=== PATIENT | female | born 1985 | race Caucasian/White ===

== ENCOUNTER 2017-10-24 15:45 | Outpatient (CLI) | payer MEDICAID | END 2017-10-24 15:46 | disposition home or self-care (01) | LOC: LAB.R 15:45 | PROVIDERS: ATTEND Nurse Practitioner Family | DX: N39.0 Urinary tract infection, site not specified (principal) | CPT/HCPCS: 87086 ==

== ENCOUNTER 2017-12-30 09:49 | Outpatient (CLI) | payer MEDICAID ==
--- NOTE | 2017-12-30 12:27 | XRAY Report ---
CERVICAL SPINE: 12/30/2017. COMPARISON: No comparison. INDICATION: Bilateral arm neuralgia. TECHNIQUE: Three views. FINDINGS: There is reversal of the cervical lordotic curve. Alignment appears otherwise anatomic. There are small bilateral C7 cervical ribs. Prevertebral soft tissues appear unremarkable. The lateral masses are symmetric. No degenerative changes. IMPRESSION: REVERSAL OF THE CERVICAL LORDOTIC CURVE MAY BE DUE TO POSITIONING OR SPASM. TD: 12/30/2017 12:26 [facility]
--- NOTE | 2017-12-30 12:29 | XRAY Report ---
BILATERAL HANDS: 12/30/2017 COMPARISON: No comparison. INDICATION: Bilateral hand pain. TECHNIQUE: Two views of each hand. FINDINGS: There are small erosions on the right at the base of the second proximal phalanx and involving the third metacarpal head. No other degenerative or erosive findings are seen. Normal alignment. No acute fracture. IMPRESSION: MILD EROSIVE CHANGES OF THE RIGHT SECOND AND THIRD METACARPOPHALANGEAL JOINTS. CORRELATE CLINICALLY FOR EROSIVE ARTHROPATHY. TD: 12/30/2017 12:28 [facility]
== END 2017-12-30 09:50 | disposition home or self-care (01) ==
LOC: DI.S 09:49
PROVIDERS: ATTEND Nurse Practitioner Family
DX: M79.2 Neuralgia and neuritis, unspecified (principal); M79.642 Pain in left hand; M85.841 Other specified disorders of bone density and structure, right hand
CPT/HCPCS: 72040

== ENCOUNTER 2018-01-23 08:00 | Outpatient (CLI) | payer MEDICAID | END 2018-01-23 08:01 | disposition home or self-care (01) | LOC: LAB.F 08:00 | PROVIDERS: ATTEND Nurse Practitioner Family | DX: Z32.01 Encounter for pregnancy test, result positive (principal); N93.9 Abnormal uterine and vaginal bleeding, unspecified | CPT/HCPCS: 36415; 84702 ==

== ENCOUNTER 2018-07-10 08:43 | Outpatient (CLI) | payer MEDICAID | END 2018-07-10 08:44 | disposition critical access hospital (66) | LOC: EMS 08:43 | PROVIDERS: ATTEND Surgery | DX: R52 Pain, unspecified (principal); V99.XXXA Unspecified transport accident, initial encounter | CPT/HCPCS: A0425; A0429; A0999 ==

== ENCOUNTER 2018-07-10 09:10 | Emergency (ER) | payer MEDICAID ==
[2018-07-10] MEDS ORDERED: MORPHINE 2 MG/ML CARPUJECT IVP STA (09:20)
[2018-07-10] MEDS ORDERED: SODIUM CHLORIDE 0.9% 1,000 ML IV ONE (09:20)
[2018-07-10] MEDS ORDERED: ONDANSETRON 4 MG/2 ML VIAL IVP STA (09:20)
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
[2018-07-10 09:47] LABS: BASOPHILS # (AUTO) 0.1 10^3/uL (0.0-0.1); EOSINOPHILS % (AUTO) 0.5 %; HGB - HEMOGLOBIN 13.4 g/dL (12.0-16.0); MEAN CORPUSCULAR HEMOGLOBIN 31.3 pg (27.0-31.0); MEAN CORPUSCULAR HGB CONC 34.9 g/dL (32.0-36.0); MEAN CORPUSCULAR VOLUME 89.5 fL (81.0-99.0); MEAN PLATELET VOLUME 8.1 fL (7.9-10.8); MONOCYTES # (AUTO) 0.7 10^3/uL (0.0-1.0); MONOCYTES % (AUTO) 11.5 %; NEUTROPHILS # (AUTO) 4.3 10^3/uL (1.5-6.6); PLT - PLATELET COUNT 292 10^3/uL (130-450); RED BLOOD COUNT 4.29 10^6/uL (4.20-5.40); RED CELL DISTRIBUTION WIDTH 13.1 % (12.0-15.0)
[2018-07-10 10:11] LABS: ALKALINE PHOSPHATASE 89 IU/L (42-121); ALT ALANINE AMINOTRANSFERASE 35 IU/L (10-60); AST ASPARTATE AMINOTRANSFERASE 33 IU/L (10-42); BILIRUBIN,TOTAL 0.7 mg/dL (0.2-1.0); BUN - BLOOD UREA NITROGEN 10 mg/dL (6-20); CALCIUM 8.8 mg/dL (8.5-10.3); CARBON DIOXIDE - CO2 24 mmol/L (21-32); CHLORIDE 101 mmol/L (101-111); CREATININE 0.9 mg/dL (0.4-1.0); GFR - MDRD 72 (>89); GLUCOSE 93 mg/dL (70-100); LIPASE 29 U/L (22-51); SODIUM 137 mmol/L (135-145); TOTAL PROTEIN 8.2 g/dL (6.7-8.2)
[2018-07-10 10:14] LABS: HCG,QUALITATIVE BLOOD NEGATIVE
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
[2018-07-10] MEDS ORDERED: IOPAMIDOL-300 100 ML VIAL ONE (10:30)
[2018-07-10] MEDS ORDERED: IOPAMIDOL-300 100 ML VIAL IVP ONE (11:15)
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
[2018-07-10 12:59] LABS: MUDS CUTOFF CONCENTRATIONS CUTOFF CONC BELOW:
[2018-07-10 13:11] LABS: GLUCOSE, URINE (UA) NEGATIVE (NEGATIVE); KETONES,URINE (UA) >=80 mg/dL (NEGATIVE); LEUKOCYTE ESTERASE, URINE NEGATIVE (NEGATIVE); NITRITE,URINE NEGATIVE (NEGATIVE); OCCULT BLOOD,URINE TRACE-INTA (NEGATIVE); PROTEIN,URINE NEGATIVE (NEGATIVE); UROBILINOGEN,URINE 0.2 (NORMAL) E.U./dL (NORMAL)
[2018-07-10 13:17] LABS: BILIRUBIN,URINE NEGATIVE (NEGATIVE); CLARITY,URINE CLEAR (CLEAR); ICTOTEST,URINE NEGATIVE
[2018-07-10 13:21] LABS: AMPHETAMINE SCREEN,URINE POSITIVE (NEGATIVE); BENZODIAZEPINES SCREEN, URINE NEGATIVE (NEGATIVE); COCAINE SCREEN URINE NEGATIVE (NEGATIVE); METHADONE SCREEN, URINE NEGATIVE (NEGATIVE); METHAMPHETAMINES SCREEN, URINE POSITIVE (NEGATIVE); OPIATE SCREEN, URINE POSITIVE (NEGATIVE); OXYCODONE SCREEN, URINE NEGATIVE (NEGATIVE); PROPOXYPHENE SCREEN, URINE NEGATIVE (NEGATIVE); TRICYCLIC ANTIDEPRESSANT,URINE NEGATIVE (NEGATIVE)
[2018-07-10 13:35] VITALS: BP 107/83
== END 2018-07-10 13:50 | disposition home or self-care (01) ==
LOC: EDUNIT# → ED 09:10
DX: S20.219A Contusion of unspecified front wall of thorax, initial encounter (principal); S30.1XXA Contusion of abdominal wall, initial encounter; S13.9XXA Sprain of joints and ligaments of unspecified parts of neck, initial encounter; V47.5XXA Car driver injured in collision with fixed or stationary object in traffic accident, initial encounter; R00.0 Tachycardia, unspecified; F17.200 Nicotine dependence, unspecified, uncomplicated
CPT/HCPCS: 36415; 51701; 70450; 71045; 71275; 72125; 74177; 80053; 80306; 80320; 81003; 83690; 84484; 84703; 85025; 93005; 96361; 96374; 99284; Q9967; 81001; 87086

== ENCOUNTER 2018-08-26 13:16 | Outpatient (CLI) | payer MEDICAID ==
--- NOTE | 2018-08-26 16:10 | XRAY Report ---
Reason: ODYNOPHAGIA Procedure Date: 08/26/2018 Accession Number: [id number] / [id number] Procedure: FL - Modified Barium Swallow W/SP CPT Code: FULL RESULT: EXAM: MODIFIED BARIUM SWALLOW EXAM DATE: 08/26/2018 02:20 PM. CLINICAL HISTORY: Odynophagia. COMPARISON: None. TECHNIQUE: Under the direction of speech pathology, patient swallowed various consistencies of barium under lateral fluoroscopic observation of the neck. Fluoroscopy Time: 51 seconds. Number of Images: 43. FINDINGS: Swallowing Mechanism: Normal oral phase with mildly delayed swallowing reflex. Airway Protection: Normal epiglottic motion. Tracheal penetration is identified without aspiration. Pharynx: Delayed progression through the pharynx. No significant vallecular or piriform sinus contrast pooling. Other: None. IMPRESSION: Penetration without aspiration and somewhat delayed progression of the bolus. [facility]
== END 2018-08-26 13:17 | disposition home or self-care (01) ==
LOC: DI 13:16
PROVIDERS: ATTEND Nurse Practitioner Family
DX: R13.10 Dysphagia, unspecified (principal)
CPT/HCPCS: 74230